=== PATIENT | female | born 1945 | race Caucasian/White ===

== ENCOUNTER 2018-10-28 14:10 | Emergency (ER) | payer MEDICARE, BC ==
[~2018-10-28] VITALS: Ht 167.6 cm; Wt 63.1 kg
[2018-10-28 14:22] VITALS: BP 105/61
--- NOTE | 2018-10-28 14:48 | NUR ---
DR. WATERS AT BEDSIDE FOR EVAL.
--- NOTE | 2018-10-28 16:20 | NUR ---
Patient discharged to home in stable condition. Written and verbal after care instructions given. Patient verbalizes understanding of instruction.
== END 2018-10-28 16:20 | disposition home or self-care (01) ==
LOC: ER 14:12
DX: S00.03XA Contusion of scalp, initial encounter (principal); S00.83XA Contusion of other part of head, initial encounter; C71.6 Malignant neoplasm of cerebellum; J32.0 Chronic maxillary sinusitis; Z85.118 Personal history of other malignant neoplasm of bronchus and lung; W01.198A Fall on same level from slipping, tripping and stumbling with subsequent striking against other object, initial encounter; Y93.89 Activity, other specified; Y92.89 Other specified places as the place of occurrence of the external cause; Y99.8 Other external cause status
CPT/HCPCS: 70450; 70486; 99284; A4606